=== PATIENT | male | born 1945 | race Caucasian/White ===

== ENCOUNTER 2021-09-01 20:00 | Emergency (ER) | payer MEDICARE ==
[2021-09-01] MEDS ORDERED: SUCR1TAB28 PO (20:27)
[2021-09-01] MEDS ORDERED: LOSA50TA37 PO (20:27)
[2021-09-01] MEDS ORDERED: ASPI-1444 PO (20:27)
[2021-09-01] MEDS ORDERED: PANT-31 PO (20:27)
[2021-09-01] MEDS ORDERED: TAMS-13 PO (20:27)
[2021-09-01] MEDS ORDERED: NITR0.4T52 SL (20:27)
[2021-09-01] MEDS ORDERED: FURO20 PO (20:27)
[2021-09-01] MEDS ORDERED: METO25 PO (20:27)
[2021-09-01] MEDS ORDERED: ATOR40TA28 PO (20:27)
[2021-09-01 20:50] LABS: BASOPHILS % (AUTO) 0.6 % (0.0-2.0); EOSINOPHILS % (AUTO) 2.1 % (1.0-6.0); HEMATOCRIT 26.5 % (41-53); HEMOGLOBIN 8.9 g/dL (13.5-17.5); LYMPHOCYTES # (AUTO) 0.7 K/uL (1.0-4.8); MEAN CORPUSCULAR HEMOGLOBIN 28.4 pg (26.0-34.0); MEAN CORPUSCULAR HGB CONC 33.7 G/dL (31.0-37.0); MEAN CORPUSCULAR VOLUME 84 fL (80-100); MONOCYTES # (AUTO) 0.4 K/uL (0.1-1.0); MONOCYTES % (AUTO) 7.8 % (2.0-9.0); NEUTROPHILS # (AUTO) 4.3 K/uL (1.8-7.7); NEUTROPHILS % (AUTO) 77.5 % (40.0-70.0); PLATELET COUNT (AUTO) 377 K/uL (150-450); RED BLOOD CELL COUNT(AUTO) 3.15 MIL/uL (4.50-5.90); RED CELL DISTRIBUTION WIDTH 15.5 % (11.5-14.5)
[2021-09-01 21:24] LABS: ANION GAP 9 mmol/L (8-16); CARBON DIOXIDE 25 mmol/L (22-29); CHLORIDE 107 mmol/L (98-107); CREATININE 1.02 mg/dL (0.60-1.30); GLUCOSE,RANDOM 117 mg/dL (70-110); POTASSIUM 3.7 mmol/L (3.5-5.1); SODIUM SERUM 141 mmol/L (136-145); UREA NITROGEN, BLOOD 19 mg/dL (7-18)
[2021-09-01 21:32] LABS: GLOMERULAR FILTR. RATE CALC > 60 mL/min (>60)
[2021-09-01 23:26] VITALS: BP 116/66
[2021-09-01 23:51] LABS: COVID AG,FIA SOURCE NASOPHARYNGEAL
== END 2021-09-02 01:30 | disposition short-term general hospital (02) ==
LOC: EMS 20:07
DX: R07.89 Other chest pain (principal); R06.02 Shortness of breath; I10 Essential (primary) hypertension; I25.10 Atherosclerotic heart disease of native coronary artery without angina pectoris; Z20.822 Contact with and (suspected) exposure to COVID-19; Z79.899 Other long term (current) drug therapy
CPT/HCPCS: 71046; 80048; 84484; 85025; 93005; 99285; 36415-L1; 36415-TC